=== PATIENT | male | born 1970 | race Caucasian/White ===

== ENCOUNTER 2019-06-09 07:43 | Day surgery (SDC) | payer OTHER ==
[~2019-06-09] VITALS: Ht 177.8 cm; Wt 106.6 kg
[~2019-06-09 07:43] MED LIST: CYCL10TA PO; GABA-843 PO; METH1TAB40 PO; MOBI15TA PO; MULTCAP PO; NS 1,000 ML IV ONE; OMEP-221 PO
[2019-06-09] MEDS ORDERED: propofoL 200 MG/20 ML VIAL As Ordered ONE (08:47)
[2019-06-09] MEDS ORDERED: LIDOCAINE 2% INJ 100 MG/5 ML SDV (FOR ANES.) As Ordered ONE (08:47)
[2019-06-09] MEDS ORDERED: fentaNYL 100 MCG/2 ML INJECTION (J3010) As Ordered ONE (08:48)
--- NOTE | 2019-06-09 09:23 | ROOR ---
Patient Name: James Porter Procedure Date: 06/09/2019 9:02 AM Date of : 1970 Age: 48 Room: [facility] Gender: Male Note Status: Finalized Procedure: Upper Endoscopy + Biopsies + Balloon Dilatation Indications: Follow-up of Hough's esophagus, Follow-up of eosinophilic esophagitis, For therapy of eosinophilic esophagitis Providers: Keshav Prabhakar MD Referring MD: PREM ALMENDAREZ MD Requesting Provider: Medicines: Monitored Anesthesia Care Complications: No immediate complications. Procedure: Pre-Anesthesia Assessment: - The heart rate, respiratory rate, oxygen saturations, blood pressure, adequacy of pulmonary ventilation, and response to care were monitored throughout the procedure. The Endoscope was introduced through the mouth, and advanced to the second part of duodenum. The upper GI endoscopy was accomplished without difficulty. The patient tolerated the procedure well. Findings: The Z-line was variable and was found 40 cm from the incisors. Multiple biopsies were obtained with cold forceps for evaluation to rule out Hough's Esophagus randomly at the gastroesophageal junction. Mucosal changes including ringed esophagus were found in the lower third of the esophagus. A TTS dilator was passed through the scope. Dilation with an 18-19-20 mm balloon dilator was performed to 20 mm in the lower third of the esophagus. No other significant abnormalities were identified in a careful examination of the stomach. The exam of the duodenum was otherwise normal. Impression: - Z-line variable, 40 cm from the incisors. - Esophageal mucosal changes secondary to eosinophilic esophagitis. - Multiple biopsies were obtained at the gastroesophageal junction. - Dilation performed in the lower third of the esophagus. - The examination was otherwise normal. Recommendation: - Patient has a contact number available for emergencies. The signs and symptoms of potential delayed complications were discussed with the patient. Return to normal activities tomorrow. Written discharge instructions were provided to the patient. - Resume previous diet. - Discharge patient to home. - Follow an antireflux regimen. - Continue present medications. - Await pathology results. - Telephone GI clinic for pathology results in 1 week. - Return to referring physician. - The findings and recommendations were discussed with the patient's family. Keshav Prabhakar MD Keshav Prabhakar MD 06/09/2019 9:23:12 AM Electronically signed by Keshav Prabhakar MD Number of Addenda: 0 Note Initiated On: 06/09/2019 9:02 AM Estimated Blood Loss: Estimated blood loss: none.
[2019-06-09 09:40] VITALS: BP 129/78
== END 2019-06-09 09:51 | disposition home or self-care (01) ==
LOC: M OPP 07:43
PROVIDERS: ATTEND Internal Medicine Gastroenterology
DX: K22.8 Other specified diseases of esophagus (principal); K20.0 Eosinophilic esophagitis; K22.70 Barrett's esophagus without dysplasia; Z79.899 Other long term (current) drug therapy; Z88.8 Allergy status to other drugs, medicaments and biological substances; Z91.012 Allergy to eggs
CPT/HCPCS: 43239; 43249; 88305; J3010